=== PATIENT | female | born 1960 | race African-American/Black ===

== ENCOUNTER 2024-03-20 04:43 | Day surgery (SDC) | payer OTHER ==
[2024-03-10 10:15] VITALS: BMI 29.9
[2024-03-20] MEDS ORDERED: FENTANYL CITRATE/PF 50 MCG/ML VIAL ONE (14:01)
[2024-03-20] MEDS ORDERED: PROPOFOL 20 ML ONE (14:01)
[2024-03-20] MEDS ORDERED: MIDAZOLAM HCL 2 MG/2 ML SINGLE DOSE VIAL ONE (14:01)
[2024-03-20] MEDS ORDERED: DEXAMETHASONE SOD PHOSPHATE 4 MG/1 ML VIAL ONE (14:02)
[2024-03-20] MEDS ORDERED: LIDOCAINE HCL/PF 2% SDV 5ML VIAL ONE (14:02)
[2024-03-20] MEDS ORDERED: ceFAZolin SODIUM 1 GM VIAL ONE (14:02)
[2024-03-20] MEDS ORDERED: ONDANSETRON 4 MG/2 ML VIAL ONE (14:02)
[2024-03-20] MEDS: ceFAZolin SODIUM 1 GM VIAL IVPB ONE (14:27)
[2024-03-20] MEDS ORDERED: SEVOFLURANE 250 ML BTL ONE (14:45)
[2024-03-20] MEDS ORDERED: ONDANSETRON 4 MG/2 ML VIAL IVPUSH PRN (14:59)
[2024-03-20] MEDS ORDERED: oxyCODONE HCL 5 MG TABLET PO PRN (14:59)
[2024-03-20] MEDS ORDERED: ACETAMINOPHEN 1000 MG/100 ML BAG IVPB PRN (14:59)
[2024-03-20] MEDS ORDERED: PROMETHAZINE HCL 25 MG/1 ML VIAL IVPB PRN (14:59)
[2024-03-20] MEDS ORDERED: LACTATED RINGERS SOLUTION 1,000 ML IV SCH (15:00)
[2024-03-20 17:17] VITALS: RESP 18
[2024-03-20 17:46] VITALS: BP 140/86; PULSE 75; TEMP 97.5
== END 2024-03-20 17:49 | disposition home or self-care (01) ==
LOC: JASU-SURG 04:43
PROVIDERS: ATTEND Obstetrics & Gynecology
PROC: 0UB98ZZ Excision of Uterus, Via Natural or Artificial Opening Endoscopic (ICD-10-PCS; principal; 2024-03-20 12:30)
DX: N95.0 Postmenopausal bleeding (principal); N84.0 Polyp of corpus uteri
CPT/HCPCS: 88305-TC; 94760